=== PATIENT | male | born 1980 | race Caucasian/White ===

== ENCOUNTER 2016-07-11 13:56 | Emergency (ER) | payer OTHER ==
--- NOTE | 2016-07-11 16:07 | ED ---
Male Urogenital HPI - General Chief complaint: Urogenital Stated complaint: Male Time Seen by Provider: 07/11/16 15:33 Source: patient, RN notes reviewed Mode of arrival: ambulatory Limitations: no limitations - History of Present Illness Initial comments: 35-year-old male presents emergency Department chief complaint of penile and scrotal swelling. Patient states he woke up with it today. Patient did admit to having new sexual partner 2 days ago and which she is homosexual. Patient states that he used a cock ring that went around the penile shaft and scrotum. Patient states that he is having severe pain and swelling. Patient states is also some drainage. Patient states never had any like this in the past. Patient denies any dysuria. Patient is concerned about possible infections. He has had a history of STDs. Patient denies any other trauma. - Related Data Home Medications Medication Instructions Recorded Confirmed Acetaminophen [Tylenol] 650 mg PO Q6H PRN 07/11/16 07/11/16 Previous Rx's Medication Instructions Recorded Hydrocodone/Acetaminophen [[place] 1 tab PO Q6HR PRN #15 tab 07/11/16 5-325] Ibuprofen [Motrin] 600 mg PO Q8HR PRN #30 tab 07/11/16 Sulfamethox-Tmp 800-160Mg [Bactrim 1 each PO Q12HR #20 tab 07/11/16 Ds] Allergies Allergy/AdvReac Type Severity Reaction Status Date / Time Tetanus Vaccines and Toxoid Allergy Swelling Verified 07/11/16 15:52 [Tetanus Vaccines & Toxoid] Review of Systems ROS Statement: Those systems with pertinent positive or pertinent negative responses have been documented in the HPI. ROS Other: All systems not noted in ROS Statement are negative. Past Medical History Past Medical History: COPD, Skin Disorder Additional Past Medical History / Comment(s): HX OF BLOOD IN STOOL AND HEMMOROIDS, STATES HAS SKIN SHIVANI, BEING TX CURRENTLY WITH ANTIBIOTICS History of Any Multi-Drug Resistant Organisms: MRSA Date of last positivie culture/infection: 07/14/2015 MDRO Source:: axilla right Past Surgical History: No Surgical Hx Reported Additional Past Surgical History / Comment(s): intestinal polyps removed Past Anesthesia/Blood Transfusion Reactions: Family Hisory of Malignant Hyperthermia Additional Past Anesthesia/Blood Transfusion Reaction / Comment(s): STATES AUNT HAD MALIGNANT HYPERTHERMIA Past Psychological History: No Psychological Hx Reported Smoking Status: Current every day smoker Past Alcohol Use History: None Reported Past Drug Use History: None Reported Additional Drug Use History / Comment(s): STATES NONE IN PAST FEW MONTHS General Exam Limitations: no limitations General appearance: alert, in no apparent distress Head exam: Present: atraumatic, normocephalic, normal inspection Eye exam: Absent: periorbital swelling Respiratory exam: Present: normal lung sounds bilaterally. Absent: respiratory distress, wheezes, rales, rhonchi, stridor Cardiovascular Exam: Present: regular rate, normal rhythm, normal heart sounds. Absent: systolic murmur, diastolic murmur, rubs, gallop, clicks GI/Abdominal exam: Present: soft, normal bowel sounds. Absent: distended, tenderness, guarding, rebound, rigid exam: Present: testicular tenderness, scrotal swelling, other (Penile shaft and scrotum are very edematous with serosanguineous and purulent drainage noted , there is no open superficial laceration at the base of the penile shaft). Absent: normal inspection Back exam: Absent: CVA tenderness (R), CVA tenderness (L) Course Vital Signs 07/11/16 14:13 Temperature 97.8 F Pulse Rate 90 Respiratory 20 Rate Blood Pressure 120/78 O2 Sat by Pulse 99 Oximetry Medical Decision Making - Medical Decision Making Dr. Riddle did discuss case with Dr. Garcia urologist. He states this usually happens secondary to lymphatic system secondary to the ring and left on for a long period time. Patient's white count was on the 11. Patient was given Rocephin in the emergency department. Patient we discharged on Bactrim. Return parameters were discussed. - Lab Data Result diagrams: 07/11/16 16:45 Lab Results 07/11/16 Range/Units 16:45 WBC 11.6 H (3.8-10.6) k/uL RBC 4.80 (4.30-5.90) m/uL Hgb 15.0 (13.0-17.5) gm/dL Hct 44.0 (39.0-53.0) % MCV 91.7 (80.0-100.0) fL MCH 31.3 (25.0-35.0) pg MCHC 34.2 (31.0-37.0) g/dL RDW 12.5 (11.5-15.5) % Plt Count 169 (150-450) k/uL Neutrophils % 69 % Lymphocytes % 20 % Monocytes % 6 % Eosinophils % 2 % Basophils % 1 % Neutrophils # 8.0 H (1.3-7.7) k/uL Lymphocytes # 2.3 (1.0-4.8) k/uL Monocytes # 0.7 (0-1.0) k/uL Eosinophils # 0.2 (0-0.7) k/uL Basophils # 0.1 (0-0.2) k/uL Disposition Clinical Impression: Genital swelling, Scrotal infection Disposition: HOME SELF-CARE Condition: Stable Instructions: Testicle Pain (ED) Additional Instructions: Please follow-up with urologist as directed.Please return to the Emergency Department if symptoms worsen or any other concerns. Prescriptions: Hydrocodone/Acetaminophen [[place] 5-325] 1 tab PO Q6HR PRN #15 tab PRN Reason: Pain Ibuprofen [Motrin] 600 mg PO Q8HR PRN #30 tab PRN Reason: Pain Sulfamethox-Tmp 800-160Mg [Bactrim Ds] 1 each PO Q12HR #20 tab Referrals: None,Stated [Primary Care Provider] - 1-2 days Simon Garcia MD [STAFF PHYSICIAN] - 1-2 days Time of Disposition: 17:11
[2016-07-11 16:56] LABS: Basophils # (A) 0.1 k/uL (0-0.2); Basophils % (A) 1 %; CH 31.5; CHCM 34.5; Eosinophils # (A) 0.2 k/uL (0-0.7); Eosinophils % (A) 2 %; HDW 2.68; Luc # (Auto) 0.33; Luc % (Auto) 3; Lymphocytes # (A) 2.3 k/uL (1.0-4.8); Lymphocytes % (A) 20 %; MCH 31.3 pg (25.0-35.0); MCHC 34.2 g/dL (31.0-37.0); MCV 91.7 fL (80.0-100.0); Mean Platelet Volume 8.2; Monocytes # (A) 0.7 k/uL (0-1.0); Monocytes % (A) 6 %; Neutrophils % (A) 69 %; RDW 12.5 % (11.5-15.5); WBC 11.6 k/uL (3.8-10.6); WBC (Perox) 11.68
[2016-07-11] MEDS ORDERED: MORPHINE SULFATE 4 MG/ML SYRINGE IVP STA (17:07)
[2016-07-11] MEDS ORDERED: KETOROLAC 30 MG/ML 1 ML VIAL IVP STA (17:07)
[2016-07-11] MEDS ORDERED: ONDANSETRON 4 MG/2 ML VIAL IVP STA (17:07)
[2016-07-11 17:11] LABS: ALT 57 U/L (21-72); AST 71 U/L (17-59); Alkaline Phosphatase 86 U/L (38-126); Anion Gap 11 mmol/L; Blood Urea Nitrogen 12 mg/dL (9-20); Carbon Dioxide 27 mmol/L (22-30); Chloride 106 mmol/L (98-107); Glucose 90 mg/dL (74-99); Non-African American GFR(MDRD) >60 (>60 ml/min/1.73 sqM); Potassium 4.1 mmol/L (3.5-5.1); Sodium 144 mmol/L (137-145); Total Bilirubin 1.2 mg/dL (0.2-1.3); Total Protein 7.3 g/dL (6.3-8.2)
--- NOTE | 2016-07-11 17:11 | XR ---
EXAMINATION TYPE: XR pelvis AP view DATE OF EXAM: 07/11/2016 4:38 PM COMPARISON: NONE HISTORY: Pain Findings: Pelvic ring is intact. Proximal femurs are intact. There is no sign of hip dysplasia. Sacro iliac joints appear normal. There are no pathologic calcifications. Technique: Single view IMPRESSION: Negative pelvis x-ray exam.
[2016-07-11 17:15] VITALS: BP 129/73; RESP 18
[2016-07-11 17:25] LABS: Appearance,Urine Clear (Clear); Bilirubin,Urine Negative (Negative); Glucose,Urine (UA) Negative (Negative); Ketones,Urine 1+ (Negative); Leukocyte Esterase,Urine Trace (Negative); Mucus,Urine Rare /hpf; Nitrite,Urine Negative (Negative); PH, Urine 6.5 (5.0-8.0); Particle Count 2801; Protein,Urine 1+ (Negative); RBC,Urine 4 /hpf (0-5); Specific Gravity,Urine 1.026 (1.001-1.035); Squamous Epithelial Cell,Urine <1 /hpf (0-4); UA Billing (MACRO vs. MICRO) MICRO; WBC,Urine 2 /hpf (0-5)
[2016-07-11 17:39] VITALS: PULSE 96; TEMP 97.9
[2016-07-13 06:56] LABS: HIV-1/HIV-2 Ab Screen NONREAC (NON REAC)
== END 2016-07-11 17:46 | disposition home or self-care (01) ==
LOC: EC 13:56
DX: N49.2 Inflammatory disorders of scrotum (principal); Z88.7 Allergy status to serum and vaccine
CPT/HCPCS: 99283; 96374; 96375 ×2; 36415; 80053; 85025; 81001; 87040; 87389; 87491; 87591; 87086; 72170; J2270; J2405; J0696; J1885

== ENCOUNTER → 2017-02-03 | Outpatient (CLI) | payer OTHER ==
[2017-02-03 16:03] LABS: Basophils % (A) 1 %; CH 31.8; CHCM 33.8; Eosinophils # (A) 0.3 k/uL (0-0.7); Eosinophils % (A) 3 %; HCT 49.3 % (39.0-53.0); HDW 2.67; Luc # (Auto) 0.17; Luc % (Auto) 2; Lymphocytes % (A) 36 %; MCH 30.7 pg (25.0-35.0); MCHC 32.5 g/dL (31.0-37.0); MCV 94.7 fL (80.0-100.0); Monocytes # (A) 0.6 k/uL (0-1.0); Monocytes % (A) 8 %; Neutrophils # (A) 4.2 k/uL (1.3-7.7); Neutrophils % (A) 51 %; RDW 13.6 % (11.5-15.5); WBC 8.2 k/uL (3.8-10.6); WBC (Perox) 7.63
[2017-02-03 16:08] LABS: ALT 119 U/L (21-72); AST 63 U/L (17-59); Alkaline Phosphatase 102 U/L (38-126); Anion Gap 11 mmol/L; Blood Urea Nitrogen 10 mg/dL (9-20); Calcium 9.5 mg/dL (8.4-10.2); Carbon Dioxide 27 mmol/L (22-30); Chloride 106 mmol/L (98-107); Glucose 98 mg/dL (74-99); Non-African American GFR(MDRD) >60 (>60 ml/min/1.73 sqM); Potassium 4.6 mmol/L (3.5-5.1); Sodium 144 mmol/L (137-145); Total Bilirubin 0.4 mg/dL (0.2-1.3); Total Protein 7.7 g/dL (6.3-8.2)
[2017-02-04 01:18] LABS: Treponemal Ab Non-Reactive (Non-Reactive)
== END | disposition home or self-care (01) ==
LOC: LABWHC1 15:15
PROVIDERS: ATTEND Internal Medicine Infectious Disease
DX: N45.1 Epididymitis (principal)
CPT/HCPCS: 36415; 80053; 85025; 86780; 87390

== ENCOUNTER → 2018-08-22 | Outpatient (CLI) | payer OTHER ==
[2018-08-22 23:48] LABS: HIV 1 AB Non-Reactive (Non-Reactive); HIV AB P24 Non-Reactive (Non-Reactive); HIV P24 AG Non-Reactive (Non-Reactive)
[2018-08-23 05:00] LABS: Hepatitis A Antibody IgM Non-Reactive (Non-Reactive); Hepatitis B Core IgM Non-Reactive (Non-Reactive)
== END ==
LOC: LABWHC1 15:20
PROVIDERS: ATTEND Internal Medicine Infectious Disease
DX: Z09 Encounter for follow-up examination after completed treatment for conditions other than malignant neoplasm (principal); Z20.6 Contact with and (suspected) exposure to human immunodeficiency virus [HIV]
CPT/HCPCS: 36415; 80074; 86780; 87390

== ENCOUNTER 2019-08-17 20:37 | Inpatient (IN) | payer MEDICAID, OTHER ==
--- NOTE | 2019-08-17 21:07 | ED ---
Psych HPI <Fidel Moise - Last Filed: 08/18/19 06:06> - General Source: patient, EMS Mode of arrival: EMS <Anika Piña - Last Filed: 08/19/19 20:17> - General Chief Complaint: Psychiatric Symptoms Stated Complaint: ETOH, Mental Health Time Seen by Provider: 08/17/19 20:38 - History of Present Illness Initial Comments: Patient is a 39-year-old male, with history of depression, presenting for psychiatric evaluation. Patient has admitted a plan to hang himself tonight. Patient has been drinking. Patient denies any homicidal thoughts. Patient's sister is petitioning patient. He has no further complaints tonight. He denies recent fever, chills, cough shortness of breath, chest pain. Of note, patient did live with 2 grandparents who have recently from Covid of infection in the last 2 weeks. (Anika Piña) - Related Data Home Medications Medication Instructions Recorded Confirmed Emtricitabine/Tenofovir (Tdf) 1 tab PO DAILY 02/17/17 02/17/17 [Truvada 200 mg-300 mg Tablet] Previous Rx's Medication Instructions Recorded Mupirocin Calcium [Bactroban 2% 1 applic TOPICAL TID #1 gm 02/17/17 Cream] Allergies Allergy/AdvReac Type Severity Reaction Status Date / Time Tetanus Vaccines and Toxoid Allergy Swelling Verified 02/17/17 14:14 [Tetanus Vaccines & Toxoid] Review of Systems ROS Other: All systems not noted in ROS Statement are negative. <Fidel Moise - Last Filed: 08/18/19 06:06> ROS Other: All systems not noted in ROS Statement are negative. <Anika Piña - Last Filed: 08/19/19 20:17> ROS Statement: Those systems with pertinent positive or pertinent negative responses have been documented in the HPI. Past Medical History Past Medical History: COPD, Skin Disorder Additional Past Medical History / Comment(s): HX OF BLOOD IN STOOL AND HEMM OROIDS, STATES HAS SKIN SHIVANI, BEING TX CURRENTLY WITH ANTIBIOTICS History of Any Multi-Drug Resistant Organisms: MRSA Date of last positivie culture/infection: 07/14/2015 MDRO Source:: axilla right Past Surgical History: No Surgical Hx Reported Additional Past Surgical History / Comment(s): intestinal polyps removed Past Anesthesia/Blood Transfusion Reactions: Family Hisory of Malignant Hyperthermia Additional Past Anesthesia/Blood Transfusion Reaction / Comment(s): STATES AUNT HAD MALIGNANT HYPERTHERMIA Past Psychological History: No Psychological Hx Reported Smoking Status: Current every day smoker Past Alcohol Use History: Occasional Past Drug Use History: None Reported - Past Family History family Family Medical History: No Reported History <Anika Piña - Last Filed: 08/19/19 20:17> General Exam Limitations: no limitations <Anika Piña - Last Filed: 08/19/19 20:17> - General Exam Comments Initial Comments: GENERAL: In no acute distress. HEAD: Atraumatic, normocephalic. EYES: Pupils equal round and reactive to light, extraocular movements intact, sclera anicteric, conjunctiva are normal. ENT: TMs normal, nares patent, oropharynx clear without exudates. Moist mucous membranes. NECK: Normal range of motion, supple without lymphadenopathy or JVD. LUNGS: Breath sounds clear to auscultation bilaterally and equal. No wheezes rales or rhonchi. HEART: Regular rate and rhythm without murmurs, rubs or gallops. ABDOMEN: Soft, nontender, normoactive bowel sounds. No guarding, no rebound. No masses appreciated. : Deferred EXTREMITIES: Normal range of motion, no pitting or edema. No clubbing or cyanosis. NEUROLOGICAL: Cranial nerves II through XII grossly intact. Normal speech, normal gait. PSYCH: Agitated SKIN: Warm, Dry, normal turgor, no rashes or lesions noted. (Anika Piña) Course Vital Signs 08/17/19 08/18/19 20:38 06:35 Temperature 97.0 F L 98.1 F Pulse Rate 91 92 Respiratory 20 18 Rate Blood Pressure 131/100 188/116 O2 Sat by Pulse 95 99 Oximetry Medical Decision Making <Fidel Moise - Last Filed: 08/18/19 06:06> - Lab Data Result diagrams: 08/19/19 07:33 08/19/19 07:33 <Anika Piña - Last Filed: 08/19/19 20:17> - Medical Decision Making I saw this patient in conjunction with the physician engineering assistant. I performed independent history and physical exam. Agree with case management. The patient was not forthcoming at my exam. He admitted making statements but would not further elaborate. (Fidel Moise) Patient is a 39-year-old here for psychiatric evaluation. He does admit to suicidal thoughts and does have a plan to hang himself. Patient arrived intoxicated. Patient was evaluated by EPS when sober. Patient will be admitted. (Anika Piña) - Lab Data Lab Results 08/17/19 08/17/19 Range/Units 21:00 21:09 Urine Color Light Yellow Urine Appearance Clear (Clear) Urine pH 6.0 (5.0-8.0) Ur Specific [place] 1.008 (1.001-1.035) Urine Protein Negative (Negative) Urine Glucose (UA) Negative (Negative) Urine Ketones Negative (Negative) Urine Blood Negative (Negative) Urine Nitrite Negative (Negative) Urine Bilirubin Negative (Negative) Urine Urobilinogen <2.0 (<2.0) mg/dL Ur Leukocyte Esterase Negative (Negative) Urine Opiates Screen Not Detected (NotDetected) Ur Oxycodone Screen Not Detected (NotDetected) Urine Methadone Screen Not Detected (NotDetected) Ur Propoxyphene Screen Not Detected (NotDetected) Ur Barbiturates Screen Not Detected (NotDetected) U Tricyclic Antidepress Not Detected (NotDetected) Ur Phencyclidine Scrn Not Detected (NotDetected) Ur Amphetamines Screen Not Detected (NotDetected) U Methamphetamines Scrn Not Detected (NotDetected) U Benzodiazepines Scrn Not Detected (NotDetected) Urine Cocaine Screen Not Detected (NotDetected) U Marijuana (THC) Screen Not Detected (NotDetected) Disposition <Fidel Moise - Last Filed: 08/18/19 06:06> <Anika Piña - Last Filed: 08/19/19 20:17> Clinical Impression: Acute anxiety Disposition: TRANSFER TO PSYCH HOSP/UNIT Condition: Stable
[2019-08-17 21:34] LABS: Amphetamine Screen,Urine Not Detected (NotDetected); Barbiturate Screen,Urine Not Detected (NotDetected); Benzodiazepines Screen,Urine Not Detected (NotDetected); Cocaine Screen,Urine Not Detected (NotDetected); Methadone Screen, Urine Not Detected (NotDetected); Opiate Screen,Urine Not Detected (NotDetected); Oxycodone Screen, Urine Not Detected (NotDetected); Phencyclidine Screen,Urine Not Detected (NotDetected); Tricyclic Antidepressant,Urine Not Detected (NotDetected); Urn Cannabinoid Scrn Not Detected (NotDetected)
[2019-08-18] MEDS ORDERED: LORazepam 2 MG/ML INJ IM STA (06:07)
[2019-08-18] MEDS ORDERED: MAG HYDROX/AL HYDROX/SIMETH 30 ML CUP PO PRN (06:28)
[2019-08-18] MEDS ORDERED: MAGNESIUM HYDROXIDE 2,400 MG/10 ML CUP PO PRN (06:28)
[2019-08-18] MEDS ORDERED: ZIPRASIDONE 20 MG VIAL IM PRN (06:28)
[2019-08-18] MEDS ORDERED: ACETAMINOPHEN TAB 325 MG TAB PO PRN (06:28)
[2019-08-18] MEDS ORDERED: cloNIDine HCL 0.2 MG TAB PO STA (06:36)
[2019-08-18] MEDS: NICOTINE 21MG/24HR PATCH TRANSDERM SCH (09:05)
[2019-08-18] MEDS: DULoxetine HCL 30 MG CAPSULE.DR PO SCH (16:26)
--- NOTE | 2019-08-18 16:28 | P.HP ---
Psychiatric H&P - . H&P Date: 08/18/19 History & Physical: Allergies Allergy/AdvReac Type Severity Reaction Status Date / Time Tetanus Vaccines and Toxoid Allergy Swelling Verified 02/17/17 14:14 [Tetanus Vaccines & Toxoid] Vital Signs Temp 98.0 F 08/18/19 13:00 Pulse 86 08/18/19 07:15 Resp 20 08/18/19 07:15 BP 162/101 08/18/19 07:15 Pulse Ox 97 08/18/19 07:15 Intake & Output 08/17/19 08/18/19 08/18/19 18:59 06:59 18:59 Weight 88.451 kg Laboratory Last Values Urine Opiates Screen Not Detected (NotDetected) 08/17/19 21:00 Ur Oxycodone Screen Not Detected (NotDetected) 08/17/19 21:00 Urine Methadone Screen Not Detected (NotDetected) 08/17/19 21:00 Ur Propoxyphene Screen Not Detected (NotDetected) 08/17/19 21:00 Ur Barbiturates Screen Not Detected (NotDetected) 08/17/19 21:00 U Tricyclic Antidepress Not Detected (NotDetected) 08/17/19 21:00 Ur Phencyclidine Scrn Not Detected (NotDetected) 08/17/19 21:00 Ur Amphetamines Screen Not Detected (NotDetected) 08/17/19 21:00 U Methamphetamines Scrn Not Detected (NotDetected) 08/17/19 21:00 U Benzodiazepines Scrn Not Detected (NotDetected) 08/17/19 21:00 Urine Cocaine Screen Not Detected (NotDetected) 08/17/19 21:00 U Marijuana (THC) Screen Not Detected (NotDetected) 08/17/19 21:00 08/18/19 16:15 IDENTIFYING DATA: 39-year-old single male patient HPI: Patient admitted to the inpatient psychiatric unit [facility] on an involuntary basis. Petition was done by relatives stating "he told me "I can't do this anymore, I have nothing left for me here I want to . I'm going to the shed to get the ladder." Patient states that he was drinking and "apparently I was going to commit suicide." Says he drank a half of a fifth of rum. He started feeling more depressed. He says he has a recent stressor with both parents grandparents up passing away, both were positive for covid. He has been going through the grieving process and not have much support. He relates that he must does been talking about suicide, the personal lines account manager were called. He relays is not a violent person. He is says he was having thoughts of hanging himself. He says other recent stressors were the result. Of time where he wasn't getting along with his grandfather and recently had been kicked out of multiple different living situations. He does also relate some anxiety. PAST PSYCHIATRIC HISTORY: No history of suicide attempts. He does admit to some history of depression. He has trialed Zoloft him which did not help and another antidepressant which is not sure of the name of he has not been on Cymbalta. She's never had any psychiatric hospitalizations. PMH: None significant known. 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 ALLERGIES: Tetanus vaccines and toxoid MEDICATIONS: Tylenol when necessary, Maalox when necessary, Ativan when necessary, milk of magnesia when necessary, Habitrol patch, Geodon when necessary CHEMICAL DEPENDENCY HISTORY: Says he was a heavier drinker in the past. He drinks now about once every 2 weeks. FAMILY PSYCHIATRIC HISTORY: Aunt with maybe schizophrenia. FAMILY CHEMICAL DEPENDENCY HISTORY: None known at this time. SOCIAL HISTORY: He most recently has been staying at his grandparents with his aunt. He has 1 sister and 1 brother who he does not talk to. He is not currently working. He is not on disability. He's never been does not have children. He did graduate high school and did some college classes. He does plan on going back to [place]. MENTAL STATUS EXAM: He is alert and overall cooperative with the interview. His speech is fluent, not rapid or pressured. His thought processes organized. His mood is described as "okay." He does make reference to wanting to get out of the hospital but is agreeable to start psychotropic medication. He denies any thoughts of harm to self or others. He does feel safe here on the unit. He is not showing any evidence of active psychosis. I do not note any significant disorientation or memory disturbance. 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 He will be placed on SP 15 minute precautions. He'll participate in group and activity therapies. We'll initiate Cymbalta 30 mg daily to help with depression and any anxiety component. We will look into any support systems. Estimated length of stay is 3-5 days. Prognosis is guarded. Baseline laboratory workup was done patient medical consultation will be ordered.
[2019-08-18 23:06] LABS: Appearance,Urine Clear (Clear); Bilirubin,Urine Negative (Negative); Blood,Urine Negative (Negative); Color,Urine Light Yellow; Glucose,Urine (UA) Negative (Negative); Ketones,Urine Negative (Negative); Leukocyte Esterase,Urine Negative (Negative); Nitrite,Urine Negative (Negative); Protein,Urine Negative (Negative); Specific Gravity,Urine 1.008 (1.001-1.035); Urobilinogen,Urine <2.0 mg/dL (<2.0)
--- NOTE | 2019-08-19 01:16 | P.MDCNMH ---
History of Present Illness H&P Date: 08/18/19 Chief Complaint: medical evaluation 39 year old male denies any past medical or mental health problems patient was brought in by family due to depressed emotions since the loss of his grandparents to COVID 19. he denies any history of mental health problems . he denies any suicidal ideation, and is upset about being here, and hoping that he could be discharged soon. ER note, reported suicidal ideation patient denies any fever, chills, chest pain, SOB, URI symptoms , abd pain , changes in his urinary or bowel habits. patient denies taking any medications at home. Review of Systems Pertinent positives as noted in HPI. All other systems were reviewed and are negative Past Medical History Past Medical History: COPD, Skin Disorder Additional Past Medical History / Comment(s): HX OF BLOOD IN STOOL AND HEMMOROIDS, STATES HAS SKIN SHIVANI, BEING TX CURRENTLY WITH ANTIBIOTICS History of Any Multi-Drug Resistant Organisms: MRSA Date of last positivie culture/infection: 07/14/2015 MDRO Source:: axilla right Past Surgical History: No Surgical Hx Reported Additional Past Surgical History / Comment(s): intestinal polyps removed Past Anesthesia/Blood Transfusion Reactions: Family Hisory of Malignant Hyperthermia Additional Past Anesthesia/Blood Transfusion Reaction / Comment(s): STATES AUNT HAD MALIGNANT HYPERTHERMIA Past Psychological History: No Psychological Hx Reported Smoking Status: Current every day smoker Past Alcohol Use History: Occasional Past Drug Use History: None Reported - Past Family History family Family Medical History: No Reported History Medications and Allergies Home Medications Medication Instructions Recorded Confirmed Type Emtricitabine/Tenofovir (Tdf) 1 tab PO DAILY 02/17/17 02/17/17 History [Truvada 200 mg-300 mg Tablet] Mupirocin Calcium [Bactroban 2% 1 applic TOPICAL TID #1 gm 02/17/17 Rx Cream] Allergies Allergy/AdvReac Type Severity Reaction Status Date / Time Tetanus Vaccines and Toxoid Allergy Swelling Verified 02/17/17 14:14 [Tetanus Vaccines & Toxoid] Physical Exam Vitals: Vital Signs Temp Pulse Pulse Resp BP BP Pulse Ox 08/18/19 21:59 97.7 F 08/18/19 18:31 98.3 F 08/18/19 13:00 98.0 F 08/18/19 07:15 98.5 F 86 20 162/101 97 08/18/19 06:35 98.1 F 92 18 188/116 99 Constitutional: No acute distress, conversant, pleasant Eyes: Anicteric sclerae, moist conjunctiva, no lid-lag Pupils equal round reactive to light ENMT: NC/AT Oropharynx clear, no erythema, exudates Neck: Supple, FROM, no masses, or JVD No carotid bruits No thyromegaly Lungs: Clear to auscultation Clear to percussion Normal respiratory effort, no accessory muscle use Cardiovascular: Heart regular in rate and rhythm, No murmurs, gallops, or rubs No peripheral edema Abdominal: Soft Nontender, no guarding, rebound or rigidity Abdomen moving with respiration Normoactive bowel sounds No hepatomegaly, No splenomegaly No palpable mass No abdominal wall hernia noted Skin: Normal temperature, tone, texture, turgor No induration No subcutaneous nodules No rash, lesions No ulcers Extremities: No digital cyanosis No clubbing Pedal pulses intact and symmetrical Radial pulses intact and symmetrical No calf tenderness Psychiatric: Alert and oriented to person, place and time Appropriate affect fair judgement Neuro Muscles Strength 5/5 in all 4 extremities Sensation to light touch grossly present throughout Cranial nerves II-XII grossly intact No focal sensory deficits Lymphatics: no palpable cervical or supraclavicular , or inguinal lymph nodes Cranial Nerve Examination - Cranial Nerves Cranial Nerve II- Optic: Intact Cranial Nerve III- Oculomotor: Intact Cranial Nerve IV- Trochlear: Intact Cranial Nerve V- Trigeminal: Intact Cranial Nerve - Abducens: Intact Cranial Nerve VII- Facial: Intact Cranial Nerve VIII- Auditory: Intact Cranial Nerve IX- Glossopharyngeal: Intact Cranial Nerve X- Vagus: Intact Cranial Nerve XI- Accessory: Intact Cranial Nerve XII- Hypoglossal: Intact Assessment and Plan Assessment: 39-year-old male with no significant past medical or mental health problems comes in due to suicidal ideation overwhelmed emotions with depressed motion secondary to recently losing his grandparents. Medicine consulted for medical management currently patient denies any medical concerns Depressed emotion Suicidal ideation Management per psych Low risk for DVT patient is ambulatory Follow-up labs COVID 19 negative Thank you for allowing us to participate in the care of this patient. We will follow peripherally. Do not hesitate to contact us with questions. Someone can be reached from the [facility] hospitalist group at all hours of the day at [phone].
[2019-08-19 07:53] LABS: Basophils # (A) 0.1 k/uL (0-0.2); Basophils % (A) 1 %; Eosinophils # (A) 0.3 k/uL (0-0.7); Eosinophils % (A) 3 %; HCT 50.3 % (39.0-53.0); HGB 16.7 gm/dL (13.0-17.5); Lymphocytes # (A) 4.5 k/uL (1.0-4.8); Lymphocytes % (A) 45 %; MCH 31.8 pg (25.0-35.0); MCHC 33.1 g/dL (31.0-37.0); MCV 96.1 fL (80.0-100.0); Mean Platelet Volume 7.6; Monocytes # (A) 0.6 k/uL (0-1.0); Monocytes % (A) 6 %; Neutrophils # (A) 4.2 k/uL (1.3-7.7); Neutrophils % (A) 43 %; Platelet Count 198 k/uL (150-450); RBC 5.23 m/uL (4.30-5.90); RDW 12.7 % (11.5-15.5); WBC 9.8 k/uL (3.8-10.6)
[2019-08-19 08:12] LABS: ALT 39 U/L (4-49); AST 35 U/L (17-59); African American GFR (CKD) >90 (>60 ml/min/1.73 sqM); Albumin 4.3 g/dL (3.5-5.0); Alkaline Phosphatase 103 U/L (38-126); Anion Gap 7 mmol/L; Bilirubin,Unconjugated 0.8 mg/dL (0.0-1.1); Blood Urea Nitrogen 13 mg/dL (9-20); Calcium 9.3 mg/dL (8.4-10.2); Carbon Dioxide 26 mmol/L (22-30); Chloride 106 mmol/L (98-107); Cholesterol 172 mg/dL (<200); Glucose 96 mg/dL (74-99); HDL Cholesterol 36 mg/dL (40-60); LDL Cholesterol,Calculated 102 mg/dL (0-99); Non-African American GFR(CKD) >90 (>60 ml/min/1.73 sqM); Sodium 139 mmol/L (137-145); Total Bilirubin 0.7 mg/dL (0.2-1.3); Total Protein 7.5 g/dL (6.3-8.2); Triglycerides 169 mg/dL (<150)
[2019-08-19] MEDS: NICOTINE 21MG/24HR PATCH TRANSDERM SCH (08:43)
[2019-08-19] MEDS: DULoxetine HCL 30 MG CAPSULE.DR PO SCH (08:44)
--- NOTE | 2019-08-19 15:24 | P.PN ---
Progress Note - Text Progress Note Date: 08/19/19 Over history: Patient is [place] [facility] [place]. He seemed to sleep well last night. He does describe feeling a little tired today in terms of a possible side effect but it seems to be very tolerable. He did talk to his sister on the phone today. He does talk today about his plans of looking at moving back to [place]. Mental status exam: He is alert and cooperative with the interview. He does not display any significant agitation. His mood overall seems to be improved. His anxiety level is manageable he reports. He denies any thoughts of harm to self and relays that he is not a violent person. He does not voice any thoughts of harm to others. No evidence of active psychosis. Plan: Patient will be maintained on current psychotropic medication regimen. We'll continue to monitor for side effects and monitor his ongoing response.
[2019-08-20] MEDS: LORazepam 1 MG TAB PO PRN (00:58)
[2019-08-20] MEDS: DULoxetine HCL 30 MG CAPSULE.DR PO SCH (09:17)
[2019-08-20] MEDS: NICOTINE 21MG/24HR PATCH TRANSDERM SCH (09:17)
[2019-08-20 10:30] LABS: Hemoglobin A1C 5.3 % (4.0-6.0)
[2019-08-20] MEDS ORDERED: MELATONIN 3 MG TABLET PO PRN (11:12)
--- NOTE | 2019-08-20 11:18 | P.PN ---
Progress Note - Text Interval history: The patient is found in the hallway at the phone he follows me to an interview room. He indicates his mood is better today. He was admitted to the mental health unit with suicidal ideation he was petition by a family member. He states that he did have suicidal thoughts specifically in the form of hanging himself but at the time he states he was intoxicated with alcohol. He states he does have a history of abusing alcohol and he had been drinking more often lately. He states that just 2 weeks ago both grandparents due to leticia virus infection. He is experiencing symptoms of grief. He has not been on the mental health unit for 2 days and states that he feels like his symptoms are stabilizing. He was placed on Cymbalta 30 mg daily. We discussed titrating the dose and he is agreeable. His questions regarding the medication were answered. He reports having some difficulty sleeping last night however staff report he slept 7 hours. Appetite is stable. He indicates he has been speaking with family via phone. He is advocating for his release from the mental health unit. We discussed our role in evaluating his acute safety risk. Mental status exam: The patient is alert he is a male appearing his stated age his head is shaved. He is dressed in his own clothing hygiene grooming adequate. Eye contact is appropriate speech is fluent spontaneous nonpressured. He reports no suicidal ideation intent or plan he is reporting no homicidal ideation intent or plan. He denies experiencing any auditory or visual hallucinations or any specific delusions. He demonstrates no tangential thinking loose associations or flight of ideas. He demonstrates no verbal or physical aggressiveness he demonstrates no involuntary repetitive movements. He reports his mood is been sad due to the loss of her grandparents. His affect is fairly [place]. Plan: The patient will continue on the Cymbalta I will titrate to 60 mg daily, we will use melatonin 6 mg at bedtime if needed. We will continue to evaluate his acute safety risk. Social work will be asked to speak with family regarding treatment and discharge planning. Vital signs reviewed.
[2019-08-21] MEDS: LORazepam 1 MG TAB PO PRN (01:08)
[2019-08-21 06:52] VITALS: BP 150/80; PULSE 72; RESP 16
[2019-08-21] MEDS: NICOTINE 21MG/24HR PATCH TRANSDERM SCH (08:27)
[2019-08-21] MEDS ORDERED: DULoxetine HCL 60 MG CAPSULE.DR PO SCH (09:00)
--- NOTE | 2019-08-21 10:52 | P.DS ---
Providers Date of admission: 08/18/19 06:25 Expected date of discharge: 08/21/19 Attending physician: Jefry Toribio Consults: 08/18/19 06:28 Consult Physician Routine Consulting Provider: Mary Valentine Consult Reason/Comments: new admission, H&P Do you want consulting provider notified?: Yes, Notify in am Primary care physician: Stated None - Discharge Diagnosis(es) (1) Major depressive disorder, recurrent severe without psychotic features Current Visit: Yes Status: Acute Priority: High (2) Alcohol use disorder, moderate, dependence Current Visit: Yes Status: Acute Priority: Medium Hospital Course: Brief summary of admission note: This patient is a 39-year-old male who was admitted to the mental health unit as he was petition by a relative due to making suicidal statements. At that time the patient was intoxicated with alcohol. He was initially evaluated by Dr. Zhou. He had stated that he was grieving the loss of his grandparents who just a few weeks ago. He had increased his use of alcohol and became disinhibited and made suicidal statements. Once sober he denied having any acute suicidal ideation. For full details please refer to the psychiatric evaluation dated 08/18/2019. Summary of hospital course: The patient was admitted to the mental health unit he signed in voluntarily. He was initially seen by Dr. Zhou. The patient was started on Cymbalta which was titrated to 60 mg daily. The patient was seen by internal medicine for routine history and physical exam. Social work met with the patient to complete a psychosocial assessment and begin discharge planning. The patient selectively attended groups. He is reporting no side effects with the Cymbalta. I assumed care of the patient beginning yesterday. The patient has not reported any suicidal ideation intent or plan under my care. He has demonstrated future oriented thinking. His plan is to reside with his aunt temporarily and he will then moved back to [place]. He has been able to demonstrate an ability to meet his activities of daily living. There is no evidence of hypomania valeriano or psychosis. Mental status exam: The patient is alert he is dressed in his own clothing hygiene grooming adequate. Eye contact is appropriate. Speech is fluent spontaneous nonpressured. He reports his mood is good he denies having any hopelessness thinking he denies having any suicidal ideation intent or plan. He is reporting no homicidal ideation intent or plan. He demonstrates no tangential thinking loose associations or flight of ideas he does not appear hypomanic or manic. He reports no auditory or visual hallucinations or any specific delusions there is no observed evidence of psychosis. He demonstrates no verbal or physical aggressiveness he demonstrates no involuntary repetitive movements. Insight and judgment grossly intact. He remains oriented to person place and date. Affect is appropriately expressive and appears euthymic. Impressions 1. Major depressive disorder recurrent severe without psychosis, alcohol use disorder moderate, rule out specific learning disorder Plan: The patient will be discharged mental health unit today he plans to reside with his aunt temporarily. Social work will arrange his outpatient mental health follow-up. He will continue on Cymbalta 60 mg daily. He does not wish to participate in inpatient chemical dependency treatment. We discussed the option of using naltrexone to reduce cravings for alcohol but he does not wish to initiate that medicine at this time either. At this time there is no imminent safety risk is appropriate for transition to outpatient care. He is instructed to abstain from alcohol use as well as any other substance as these will precipitate mood symptoms of elevate his safety risk. He is instructed to return to hospital if any acute safety concerns. Patient Condition at Discharge: Stable Plan - Discharge Summary New Discharge Prescriptions: New DULoxetine HCL [Cymbalta] 60 mg PO DAILY #30 capsule. Continue Emtricitabine/Tenofovir (Tdf) [Truvada 200 mg-300 mg Tablet] 1 tab PO DAILY #30 Discontinued Mupirocin Calcium [Bactroban 2% Cream] 1 applic TOPICAL TID #1 gm Discharge Medication List DULoxetine HCL [Cymbalta] 60 mg PO DAILY #30 capsule. 08/21/19 [Rx] Emtricitabine/Tenofovir (Tdf) [Truvada 200 mg-300 mg Tablet] 1 tab PO DAILY #30 08/21/19 [Rx] Follow up Appointment(s)/Referral(s): None,Stated [Primary Care Provider] - 1-2 days Activity/Diet/Wound Care/Special Instructions: Activity and diet as tolerated. Avoid the use of street drugs and alcohol. Take all medications as prescribed. When you are in need of refills on your medications please contact your medical provider and/or outpatient psychiatrist to have this done. Please go to scheduled outpatient appointment for aftercare treatment. If symptoms return or become worse, call the crisis line at and/or go to the nearest emergency room for evaluation.
[2019-08-21 13:26] VITALS: TEMP 98.1
== END 2019-08-21 15:15 | disposition home or self-care (01) | DRG 885 ==
LOC: EC 20:37 → 3MHU 08-18 06:25
PROVIDERS: ADMIT Psychiatry & Neurology Psychiatry; ATTEND Psychiatry & Neurology Psychiatry
DX: F33.2 Major depressive disorder, recurrent severe without psychotic features (principal); R45.851 Suicidal ideations; Z20.828 Contact with and (suspected) exposure to other viral communicable diseases; J44.9 Chronic obstructive pulmonary disease, unspecified; F10.229 Alcohol dependence with intoxication, unspecified; R21 Rash and other nonspecific skin eruption; F17.200 Nicotine dependence, unspecified, uncomplicated; F41.9 Anxiety disorder, unspecified; F81.2 Mathematics disorder; Z79.899 Other long term (current) drug therapy; Z87.19 Personal history of other diseases of the digestive system; Z86.14 Personal history of Methicillin resistant Staphylococcus aureus infection; Z86.010 Personal history of colon polyps; Z88.7 Allergy status to serum and vaccine; Z82.69 Family history of other diseases of the musculoskeletal system and connective tissue; Z81.8 Family history of other mental and behavioral disorders
CPT/HCPCS: 80053; 80061; 80306; 81003; 82075; 82248; 83036; 84443; 85025; 87635; 96372; 99285

== ENCOUNTER 2019-11-11 18:13 | Emergency (ER) | payer MEDICAID, OTHER ==
--- NOTE | 2019-11-11 19:08 | ED ---
General Adult HPI - General Chief complaint: Urogenital Stated complaint: Male Time Seen by Provider: 11/11/19 18:33 Source: patient, RN notes reviewed, old records reviewed Mode of arrival: ambulatory Limitations: no limitations - History of Present Illness Initial comments: 39-year-old male presenting for evaluation of penile and scrotal swelling p atient notices symptoms approximately 3 days ago. Similar episode in the past that did require evaluation by infectious disease as well as urology. Patient is sexually active, states he had STD testing approximately one month ago and this was negative. He is homosexual. Denies any scrotal or penile trauma. He's had some rash, skin breakdown and swelling in the penis and scrotum for the past several days. This is very similar to previous episode he had years ago which was MRSA. - Related Data Previous Rx's Medication Instructions Recorded DULoxetine HCL [Cymbalta] 60 mg PO DAILY #30 capsule. 08/21/19 Emtricitabine/Tenofovir (Tdf) 1 tab PO DAILY #30 08/21/19 [Truvada 200 mg-300 mg Tablet] Cephalexin [Keflex] 500 mg PO Q6HR 10 Days #40 cap 11/11/19 Sulfamethox-Tmp 800-160Mg [Bactrim 1 tab PO Q12HR #28 tab 11/11/19 DS 800-160 mg] Allergies Allergy/AdvReac Type Severity Reaction Status Date / Time Tetanus Vaccines and Toxoid Allergy Swelling Verified 11/11/19 18:26 [Tetanus Vaccines & Toxoid] Review of Systems ROS Statement: Those systems with pertinent positive or pertinent negative responses have been documented in the HPI. ROS Other: All systems not noted in ROS Statement are negative. Past Medical History Past Medical History: COPD, Skin Disorder Additional Past Medical History / Comment(s): HX OF BLOOD IN STOOL AND HEMMOROIDS, STATES HAS SKIN SHIVANI, BEING TX CURRENTLY WITH ANTIBIOTICS History of Any Multi-Drug Resistant Organisms: MRSA Date of last positivie culture/infection: 07/14/2015 MDRO Source:: axilla right Past Surgical History: No Surgical Hx Reported Additional Past Surgical History / Comment(s): intestinal polyps removed Past Anesthesia/Blood Transfusion Reactions: Family Hisory of Malignant Hyperthermia Additional Past Anesthesia/Blood Transfusion Reaction / Comment(s): STATES AUNT HAD MALIGNANT HYPERTHERMIA Past Psychological History: No Psychological Hx Reported Past Alcohol Use History: Occasional Past Drug Use History: None Reported - Past Family History family Family Medical History: No Reported History General Exam Limitations: no limitations General appearance: alert, in no apparent distress Head exam: Present: atraumatic, normocephalic Eye exam: Present: normal appearance, PERRL ENT exam: Present: normal exam Neck exam: Present: normal inspection. Absent: tenderness, meningismus Respiratory exam: Present: normal lung sounds bilaterally. Absent: respiratory distress, wheezes Cardiovascular Exam: Present: regular rate, normal rhythm GI/Abdominal exam: Present: soft. Absent: distended, tenderness exam: Present: scrotal swelling, other (Foreskin is reducible, no phimosis or paraphimosis, and glans is normal. There is swelling in the skin of the penile shaft and excoriation of the skin on the shaft and scrotum. There is no fluctuance, no drainable abscess appreciated on exam. No testicular tenderness.). Absent: testicular tenderness, urethral discharge Extremities exam: Present: normal inspection, normal capillary refill Course Vital Signs 11/11/19 18:23 Temperature 98.4 F Pulse Rate 93 Respiratory 16 Rate Blood Pressure 135/88 O2 Sat by Pulse 99 Oximetry Medical Decision Making - Medical Decision Making 39-year-old male with swelling and pain of the scrotum and penile shaft. There is no fluctuance, no induration, there is erythema and excoriation of the scrotal or penile skin. No phimosis or paraphimosis. Urinalysis negative for infection. Ultrasound was performed to rule out abscess, this is negative showing good arterial flow to both testicles, no abscess visualized. Patient will be started on Keflex and Bactrim, he is given a dose in the emergency department. - Lab Data Lab Results 11/11/19 Range/Units 19:00 Urine Color Yellow Urine Appearance Clear (Clear) Urine pH 6.0 (5.0-8.0) Ur Specific [place] 1.018 (1.001-1.035) Urine Protein Negative (Negative) Urine Glucose (UA) Negative (Negative) Urine Ketones Negative (Negative) Urine Blood Negative (Negative) Urine Nitrite Negative (Negative) Urine Bilirubin Negative (Negative) Urine Urobilinogen 2.0 (<2.0) mg/dL Ur Leukocyte Esterase Negative (Negative) Disposition Clinical Impression: Cellulitis, scrotum Disposition: HOME SELF-CARE Condition: Good Instructions (If sedation given, give patient instructions): Hydrocele (ED), Scrotal Pain (ED), Cellulitis (ED) Prescriptions: Sulfamethox-Tmp 800-160Mg [Bactrim DS 800-160 mg] 1 tab PO Q12HR #28 tab Cephalexin [Keflex] 500 mg PO Q6HR 10 Days #40 cap Is patient prescribed a controlled substance at d/c from ED?: No Referrals: None,Stated [Primary Care Provider] - 1-2 days Robbie Roberson MD [STAFF PHYSICIAN] - 1-2 days Simon Garcia MD [STAFF PHYSICIAN] - 1-2 days Time of Disposition: 19:55
[2019-11-11] MEDS ORDERED: CEPHALEXIN 500 MG CAP PO STA (19:11)
[2019-11-11] MEDS ORDERED: SULFAMETHOX-TMP 800-160MG 1 EACH TAB PO STA (19:11)
[2019-11-11 19:12] LABS: Appearance,Urine Clear (Clear); Bilirubin,Urine Negative (Negative); Blood,Urine Negative (Negative); Color,Urine Yellow; Glucose,Urine (UA) Negative (Negative); Ketones,Urine Negative (Negative); Leukocyte Esterase,Urine Negative (Negative); Nitrite,Urine Negative (Negative); Protein,Urine Negative (Negative); Specific Gravity,Urine 1.018 (1.001-1.035)
--- NOTE | 2019-11-11 19:35 | US ---
EXAMINATION TYPE: US scrotum with doppler. Grayscale and color Doppler Duplex imaging performed of jan orantes scrotum. DATE OF EXAM: 11/11/2019 COMPARISON: NONE CLINICAL HISTORY: Scrotal swelling. patient has swollen, red penis and scrotal sac with weeping wound s EXAM MEASUREMENTS: TESTICLES: Right Testicle: 4.6 x 3.1 x 2.9 cm Left Testicle: 3.9 x 3.3 x 2.4 cm EPIDIDYMIS HEAD: Right Epididymis: 0.8 cm Left Epididymis: 1.1 cm Doppler performed to assess for testicular vascularity; good bilateral color flow and waveforms are s een. There is no evidence of testicular torsion. Presence of hydroceles: mild bilaterally Presence of varicoceles: around the left IMPRESSION: There are small bilateral hydroceles. No testicular torsion or mass. No evidence of epidi dymal mass.
[2019-11-11 20:13] VITALS: BP 141/85; PULSE 85; RESP 19; TEMP 98
== END 2019-11-11 20:17 | disposition home or self-care (01) ==
LOC: EC 18:13
DX: N49.2 Inflammatory disorders of scrotum (principal); Z88.7 Allergy status to serum and vaccine; Z86.14 Personal history of Methicillin resistant Staphylococcus aureus infection
CPT/HCPCS: 76870; 81003; 93975; 99284